=== PATIENT | female | born 1990 ===

== ENCOUNTER 2017-04-24 19:16 | Emergency (ER) | payer BC ==
[2017-04-24 19:46] VITALS: BP 118/70; PULSE 80; TEMP 97.8; O2SAT 98
--- NOTE | 2017-04-24 20:27 | C.PDOC ---
History Of Present Illness 26 year old female presents to the ED c/o pain to her left leg that started today. Patient states her pain starts at her left thigh radiates down below her knee. She is unable to describe the pain, but it is causing discomfort. Patient states she called her PMD, who recommended she go to the ED for evaluation and rule out DVT. Patient recently started Oral contraceptives Loryna 1.5 weeks ago. Patient denies any injury, fall, trauma, weakness, numbness. Time Seen by Provider: 04/24/17 19:50 Chief Complaint (Nursing): Lower Extremity Problem/Injury History Per: Patient History/Exam Limitations: no limitations Onset/Duration Of Symptoms: Hrs Current Symptoms Are (Timing): Still Present Recent travel outside of the [place]: No Additional History Per: Patient - Knee Description Of Injury: Other Past Medical History Reviewed: Historical Data, Nursing Documentation, Vital Signs Vital Signs: Last Vital Signs Temp 97.8 F 04/24/17 19:43 Pulse 80 04/24/17 19:43 Resp 20 04/24/17 22:03 BP 118/70 04/24/17 19:43 Pulse Ox 98 04/24/17 21:28 - Medical History PMH: No Chronic Diseases Surgical History: No Surg Hx Family History: States: Unknown Family Hx - Social History Hx Alcohol Use: Yes Hx Substance Use: No - Immunization History Hx Tetanus Toxoid Vaccination: Yes Hx Influenza Vaccination: No Hx Pneumococcal Vaccination: No Review Of Systems Constitutional: Negative for: Fever, Chills Cardiovascular: Negative for: Chest Pain Respiratory: Negative for: Cough, Shortness of Breath Gastrointestinal: Negative for: Nausea, Vomiting, Abdominal Pain Skin: Negative for: Rash Neurological: Negative for: Weakness, Numbness, Headache Physical Exam - Physical Exam Appears: Non-toxic, No Acute Distress Skin: Normal Color, Warm, Dry Head: Atraumatic, Normacephalic Eye(s): bilateral: Normal Inspection, EOMI Nose: No Discharge, No Deformity Neck: Normal ROM Chest: Symmetrical Cardiovascular: Rhythm Regular Respiratory: Normal Breath Sounds, No Wheezing Extremity: Normal ROM, Tenderness (mildly tender to medial left thigh ), No Calf Tenderness ( no erythema or palpable cord), Capillary Refill (< 2 seconds) , No Deformity, No Swelling Pulses: Left Dorsalis Pedis: Normal, Right Dorsalis Pedis: Normal Neurological/Psych: Oriented x3, Normal Speech Gait: Steady ED Course And Treatment - Laboratory Results Result Diagrams: 04/24/17 20:51 Lab Interpretation: Normal O2 Sat by Pulse Oximetry: 98 (On RA) Pulse Ox Interpretation: Normal Medical Decision Making Medical Decision Making: Impression: left leg pain. sent by PMD r.o DVT. Venous doppler is not available at this time. Will order labs. patient requesting imaging XRay or CT. Xray was ordered. Progres: Labs normal, neg Dimer Knee xray shows no effusion or fracture. Patient remained well in no distress. Explained results to patient and provided copy of lab results. I discussed with negative dimer test, unlikely DVT. She still wants to return for US and states she wants an MRI. I advised patient to return to ER for doppler, and can then follow up if needed Disposition Counseled Patient/Family Regarding: Studies Performed, Diagnosis, Need For Followup - Disposition Disposition: HOME/ ROUTINE Disposition Time: 22:00 Condition: GOOD Additional Instructions: Your labs were normal Please Return to ER tomorrow morning, before 4pm to have venous doppler to rule out any DVT Take any analgesic as needed. 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 - Scribe Statement The provider has reviewed the documentation as recorded by the Scribe Basil Washington All medical record entries made by the Scribe were at my direction and personally dictated by me. I have reviewed the chart and agree that the record accurately reflects my personal performance of the history, physical exam, medical decision making, and the department course for this patient. I have also personally directed, reviewed, and agree with the discharge instructions and disposition.
[2017-04-24 20:54] LABS: HEMOGLOBIN 12.8 g/dL (11.0-16.0); MEAN CELL VOLUME 88.9 fL (81.0-99.0); MEAN CORPUSCULAR HEMOGLOBIN 30.6 pg (27.0-31.0); MEAN CORPUSCULAR HGB CONC 34.4 g/dL (33.0-37.0); MEAN PLATELET VOLUME 7.9 fL (7.2-11.7); RBC 4.17 Mil/uL (3.80-5.20); RED CELL DISTRIBUTION WIDTH 11.9 % (11.5-14.5); WHITE BLOOD COUNT 6.2 K/uL (4.8-10.8)
[2017-04-24 21:10] LABS: PARTIAL THROMBOPLASTIN TIME 28 SECONDS (21-34)
[2017-04-24 21:12] LABS: D DIMER < 200 ng/mlDDU (0-243)
[2017-04-24 22:04] VITALS: RESP 20
--- NOTE | 2017-04-25 08:38 | RAD ---
PROCEDURE: Left Knee Radiographs. HISTORY: COMPARISON: None available. FINDINGS: BONES: No acute displaced fracture. JOINTS: No dislocation. JOINT EFFUSION: No significant joint effusion. OTHER FINDINGS: None. IMPRESSION: No acute displaced fracture, dislocation, or significant joint effusion identified. If symptoms persist, or if there is continued clinical concern, x-ray follow-up in 7-10 days should be considered.
== END 2017-04-24 22:03 | disposition home or self-care (01) ==
LOC: C.ER 19:16
DX: M79.652 Pain in left thigh (principal)

== ENCOUNTER 2017-04-25 09:55 | Emergency (ER) | payer BC ==
[2017-04-25 10:05] VITALS: BMI 24.5
--- NOTE | 2017-04-25 11:03 | C.PDOC ---
History Of Present Illness 26 year old female presents to the ER for doppler study to rule out DVT. Patient was seen in the ER yesterday for left leg pain, she had normal x-rays and lab work but was discharged with follow up to have a doppler study done. Patient states she went to the outpatient facility who told her she needed a prescription which prompted visit. Denies any new complaints. Time Seen by Provider: 04/25/17 10:32 Chief Complaint (Nursing): Lower Extremity Problem/Injury History Per: Patient History/Exam Limitations: no limitations Onset/Duration Of Symptoms: Days Current Symptoms Are (Timing): Still Present Recent travel outside of the [place]: No Past Medical History Reviewed: Historical Data, Nursing Documentation, Vital Signs Vital Signs: Last Vital Signs Temp 98.4 F 04/25/17 10:05 Pulse 73 04/25/17 10:05 Resp 17 04/25/17 10:05 BP 107/74 04/25/17 10:05 Pulse Ox 99 04/25/17 11:17 Family History: States: Unknown Family Hx - Social History Hx Alcohol Use: Yes Hx Substance Use: No - Immunization History Hx Tetanus Toxoid Vaccination: Yes Hx Influenza Vaccination: No Hx Pneumococcal Vaccination: No Review Of Systems Except As Marked, All Systems Reviewed And Found Negative. Constitutional: Negative for: Fever, Chills Musculoskeletal: Positive for: Leg Pain Physical Exam - Physical Exam Additional Physical Exam Comments: Constitutional: No acute distress. Head: Normocephalic. Atraumatic. Eyes: PERRL. ENT: Moist mucous membranes. Neck: Supple. Cardiovascular: Regular rate. Radial pulse 2+ bilaterally. Chest: No tenderness. Respiratory: Clear to auscultation bilaterally. GI: Soft. Nontender. Nondistended. Back: No CVA tenderness. Musculoskeletal: Mildly tender to medial left thigh, no calf tenderness, no erythema or palpable cord. Skin: No rash. Neurologic: Alert, no focal deficit. ED Course And Treatment O2 Sat by Pulse Oximetry: 99 Medical Decision Making Medical Decision Making: Doppler negative. Disposition - Disposition Disposition: HOME/ ROUTINE Disposition Time: 12:55 Condition: STABLE Additional Instructions: The sonogram of your leg did not show a blood clot. Forms: [employer] ([place]) - Clinical Impression Clinical Impression: Leg pain - Scribe Statement The provider has reviewed the documentation as recorded by the Scribe Enrrique Duncan All medical record entries made by the Scribe were at my direction and personally dictated by me. I have reviewed the chart and agree that the record accurately reflects my personal performance of the history, physical exam, medical decision making, and the department course for this patient. I have also personally directed, reviewed, and agree with the discharge instructions and disposition.
[2017-04-25 13:08] VITALS: BP 112/80; PULSE 72; RESP 20; TEMP 99; O2SAT 100
--- NOTE | 2017-04-25 13:20 | VASCLAB ---
PROCEDURE: Left Lower Extremity Venous Duplex Exam. HISTORY: L leg swelling PRIORS: None. TECHNIQUE: Left common femoral, femoral, popliteal and posterior tibial, peroneal and great saphenous veins were evaluated. Flow was assessed with color Doppler, compressibility, assessment of phasic flow and augmentation response. Report prepared by CHRIS Harris, RVT FINDINGS: LEFT: 1. Common Femoral Vein: 1.1. Compressibility - Fully compressible: Thrombus - None : Flow - Phasic: Augmentation -Normal: Reflux - None. 2. Femoral Vein: 2.1. Compressibility - Fully compressible: Thrombus - None: Flow - Phasic: Augmentation -Normal: Reflux - None. 3. Popliteal Vein: 3.1. Compressibility - Fully compressible: Thrombus - None: Flow - Phasic: Augmentation -Normal: Reflux - None. 4. Posterior Tibial Vein: 4.1. Compressibility - Fully compressible: Thrombus - None: Flow - Phasic: Augmentation -Normal: Reflux - None. 5. Peroneal Vein: 5.1. Compressibility - Fully compressible: Thrombus - None: Flow - Phasic: Augmentation -Normal: Reflux - None. 6. Great Saphenous Vein: 6.1. Compressibility - Fully compressible: Thrombus - None: Flow - Phasic: Augmentation - Normal: Reflux - None. OTHER FINDINGS: IMPRESSION: No evidence of deep or superficial vein thrombosis of the left lower extremity with excellent venous flow. Normal valve function noted of the left side. Normal venous flow noted in the right common femoral vein.
== END 2017-04-25 13:15 | disposition home or self-care (01) ==
LOC: C.ER 09:55
DX: M79.605 Pain in left leg (principal)